=== PATIENT | female | born 1985 | race Caucasian/White ===

== ENCOUNTER 2016-09-08 01:53 | Emergency (ER) | payer OTHER | END 2016-09-08 06:01 | disposition home or self-care (01) | LOC: FER 01:53 | DX: J45.901 Unspecified asthma with (acute) exacerbation (principal); J18.9 Pneumonia, unspecified organism; F17.210 Nicotine dependence, cigarettes, uncomplicated; Z88.2 Allergy status to sulfonamides; Z79.51 Long term (current) use of inhaled steroids; Z79.899 Other long term (current) drug therapy; Z3A.27 27 weeks gestation of pregnancy | CPT/HCPCS: 71020; 87804; 87899; 94640; 94664 ==